=== PATIENT | male | born 1990 | race Caucasian/White ===

== ENCOUNTER 2024-01-06 18:45 | Emergency (ER) | payer OTHER ==
[2024-01-06] MEDS ORDERED: Rabies Immune Globulin PF 150 Units/ML 2 ML SDV IM ONE (19:28)
[2024-01-06] MEDS: Rabies Vaccine (Avian) 2.5 Unit Inj Kit IM ONE (20:12)
[2024-01-06] MEDS: Rabies Immune Globulin/PF (HyperRAB) 300 UNIT/ML 5 ML SDV IM ONE (20:13)
[2024-01-06] MEDS: Diphtheria,Pertussis(Acell),Tetanus Vaccine 0.5 ML Syringe IM ONE (20:16)
[2024-01-06] MEDS: Amoxicillin/Clavulanate K 875-125 MG Tab PO ONE (20:27)
== END 2024-01-06 20:41 | disposition home or self-care (01) ==
LOC: JD.ED 18:45
DX: S61.452A Open bite of left hand, initial encounter (principal); Z29.14 Encounter for prophylactic rabies immune globulin; W55.01XA Bitten by cat, initial encounter
CPT/HCPCS: 90375; 90471; 90675; 90715; 96372; 99283; A9270; 99282

== ENCOUNTER 2024-03-10 20:17 | Emergency (ER) | payer OTHER ==
[2024-03-10] MEDS: Amoxicillin/Clavulanate K 875-125 MG Tab PO ONE (23:54)
[2024-03-10] MEDS: Lidocaine 1% 10 ML MDV INJECT ONE (23:54)
[2024-03-10] MEDS: Bacitracin Oint 15 GM Tube TOP ONE (23:55)
== END 2024-03-11 00:08 | disposition home or self-care (01) ==
LOC: JD.ED 20:17
DX: S01.81XA Laceration without foreign body of other part of head, initial encounter (principal); Z79.899 Other long term (current) drug therapy; W22.8XXA Striking against or struck by other objects, initial encounter; Y93.89 Activity, other specified
CPT/HCPCS: 12014; 70486; 99283; A9270; 99282; J3490